=== PATIENT | female | born 2000 | race Caucasian/White ===

== ENCOUNTER 2024-07-05 22:41 | Emergency (ER) | payer BC, OTHER ==
[2024-07-06] MEDS: Sodium Chloride 0.9% 1,000 ML IV ONE (00:23)
[2024-07-06] MEDS: Famotidine 20 MG Tab PO ONE (00:24)
[2024-07-06] MEDS: Alum Hydrox/Mag Hydrox/Simeth 30 ML, Lidocaine 2% 15 ML PO ONE (00:24)
[2024-07-06 00:32] LABS: BASOPHILS PERCENT AUTO 0.3 % (0.0-1.0); HEMATOCRIT 42.7 % (37.0-47.0); HEMOGLOBIN 14.4 gm/dl (12.0-16.0); IMMATURE GRAN ABSOLUTE AUTO 0.03 K/mm3 (0.00-0.05); IMMATURE GRAN PERCENT AUTO 0.3 % (0.0-0.4); LYMPHOCYTES ABSOLUTE AUTO 1.5 K/mm3 (1.0-4.8); LYMPHOCYTES PERCENT AUTO 15.4 % (24.0-44.0); MEAN CORPUSCULAR HEMOGLOBIN 32.1 pg (28.0-32.0); MEAN CORPUSCULAR HGB CONC 33.7 g/dl (32.0-36.0); MEAN CORPUSCULAR VOLUME 95.3 fl (83.0-99.0); MEAN PLATELET VOLUME 9.4 fl (9.4-12.3); MONOCYTES ABSOLUTE AUTO 0.5 K/mm3 (0.0-0.8); MONOCYTES PERCENT AUTO 5.4 % (0.0-8.0); NEUTROPHILS ABSOLUTE AUTO 7.4 K/mm3 (1.8-7.7); NEUTROPHILS PERCENT AUTO 78.6 % (41.0-71.0); PLATELET COUNT,PLT 296 K/mm3 (150-400); RED BLOOD CELL COUNT 4.48 M/mm3 (4.10-5.30); WHITE BLOOD CELL COUNT,WBC 9.45 K/mm3 (3.9-11.3)
[2024-07-06 00:33] LABS: APPEARANCE,URINE SLT CLOUDY (Clear); BILIRUBIN,URINE 1+ (Negative); COLOR,URINE DARK YELLOW (Yellow); GLUCOSE,URINE NEGATIVE (Negative); KETONES,URINE 2+ (Negative); LEUKOCYTE ESTERASE,URINE NEGATIVE (Negative); NITRITE,URINE NEGATIVE (Negative); OCCULT BLOOD,URINE NEGATIVE (Negative); PROTEIN,URINE 1+ (Negative)
[2024-07-06 00:39] LABS: BACTERIA,URINE FEW /hpf (FEW); CALCIUM OXALATE CRYSTALS,URINE OCCASIONAL; MUCUS,URINE MANY /hpf (FEW); RBC,URINE 0-5 /hpf (0-5); SQUAMOUS EPITHELIAL CELLS,UR 0-5 /hpf (0-5); WBC,URINE 0-5 /hpf (0-5)
[2024-07-06] MEDS: Ondansetron 4 MG/2 ML SDV IVPUSH ONE (00:48)
[2024-07-06 00:53] LABS: A/G RATIO 1.5 (1-2); ALBUMIN 4.7 g/dl (3.4-5.0); ANION GAP 13.7 (5-15); BILIRUBIN TOTAL 0.6 mg/dL (0.2-1.0); BUN/CREATININE RATIO 8.2 (14-18); CALCIUM 9.5 mg/dL (8.5-10.1); CREATININE 1.1 mg/dL (0.55-1.02); EST CRCL DRUG DOSING (CG) 83.13 mL/min; MAGNESIUM 2.2 mg/dL (1.8-2.4); POTASSIUM,K 3.7 mEq/L (3.5-5.1); PROTEIN TOTAL,TP 7.8 g/dl (6.4-8.2)
[2024-07-06] MEDS: Iopamidol 612 MG/ML 30 ML SDV IVPUSH ONE (01:12)
[2024-07-06] MEDS: Sodium Chloride 0.9% 10 ML Syringe FLUSH PRN (01:12)
[2024-07-06] MEDS: Iopamidol 612 MG/ML 100 ML Bottle IVPUSH ONE (01:12)
[2024-07-06] MEDS: Metoclopramide 10 MG/2 ML SDV IVPUSH ONE (02:36)
[2024-07-06] MEDS: diphenhydrAMINE 50 MG/ML SDV IVPUSH ONE (04:36)
== END 2024-07-06 07:08 | disposition home or self-care (01) ==
LOC: JD.ED 22:41
DX: T83.32XA Displacement of intrauterine contraceptive device, initial encounter (principal); R10.10 Upper abdominal pain, unspecified; E66.9 Obesity, unspecified; Z91.011 Allergy to milk products; Z91.018 Allergy to other foods; Z79.899 Other long term (current) drug therapy; Z86.16 Personal history of COVID-19; Z68.35 Body mass index [BMI] 35.0-35.9, adult
CPT/HCPCS: 36415; 74177; 76830; 80053; 81001; 83690; 83735; 84703; 85025; 96361; 96374; 96375; 99284; A9270; J1200; J2405; J2765; J7030; Q9967